=== PATIENT | male | born 1990 | race Caucasian/White ===

== ENCOUNTER 2023-08-16 16:44 | Inpatient (IN) | payer OTHER ==
[2023-08-16] VITALS (11 sets, daily range): BP systolic 107–207; BP diastolic 41–141; PULSE 98–152; RESP 17–46; TEMP 98.6–99.2; O2SAT 94–100
[~2023-08-16] VITALS: Ht 175.3 cm; Wt 97.5 kg
[2023-08-16] MEDS ORDERED: NACL 0.9% 1,000 ML IV SCH (16:50)
[2023-08-16] MEDS ORDERED: ALBUTEROL SULFATE/IPRATROPIU 3 ML SOL IH ONE ×2 (16:54→17:05)
[2023-08-16] MEDS ORDERED: ALBUTEROL 0.083% 2.5 MG/3 ML NEBU INH ONE (16:55)
[2023-08-16] MEDS ORDERED: NALOXONE 0.4 MG/ML VIAL ONE (16:58)
[2023-08-16] MEDS ORDERED: NALOXONE 0.4 MG/ML VIAL IVP ONE (17:00)
[2023-08-16] MEDS ORDERED: INTUBATION KIT MC ONE (17:04)
[2023-08-16] MEDS ORDERED: LORazepam 2 MG/ML VIAL ONE (17:15)
[2023-08-16] MEDS ORDERED: LORazepam 2 MG/ML VIAL IVP ONE (17:15)
[2023-08-16 17:27] LABS: BASOPHILS # (AUTO) 0.1 K/uL (0.00-0.22); BASOPHILS % (AUTO) 0.5 % (0.0-2.0); EOSINOPHILS # (AUTO) 0.2 K/uL (0-0.4); EOSINOPHILS % (AUTO) 1.3 % (0.0-4.0); HEMATOCRIT 49.3 % (36-52); HEMOGLOBIN 16.2 g/dL (12.0-18.0); LYMPHOCYTES # (AUTO) 7.2 K/uL (2.0-11.5); LYMPHOCYTES % (AUTO) 38.4 % (20.5-51.1); MEAN CORPUSCULAR HEMOGLOBIN 33 pg (27-31); MEAN CORPUSCULAR HGB CONC 33 g/dL (33-37); MEAN CORPUSCULAR VOLUME 101.8 fL (80-94); MONOCYTES % (AUTO) 10.7 % (1.7-9.3); NEUTROPHILS # (AUTO) 9.3 K/uL (1.8-7.7); NEUTROPHILS % (AUTO) 49.1 % (42.2-75.2); PLATELET COUNT (AUTO) 178 K/uL (140-450); RED BLOOD CELL COUNT(AUTO) 4.85 MIL/uL (4.20-6.10); RED CELL DISTRIBUTION WIDTH 15.8 % (11.6-13.7); WHITE BLOOD COUNT (AUTO) 18.8 K/uL (4.8-10.8)
[2023-08-16] MEDS ORDERED: cefTRIAXone 2,000 MG in DEXTROSE 5% 100 ML IV ONE (17:30)
[2023-08-16 17:47] LABS: ALBUMIN 4.1 g/dL (3.4-5.0); ANION GAP 34.5 (8-16); CALCIUM 10.2 mg/dL (8.5-10.1); CREATININE 1.5 mg/dL (0.6-1.3); POTASSIUM 3.4 mmol/L (3.5-5.1); TOTAL BILIRUBIN 1.2 mg/dL (0.0-1.0)
[2023-08-16] MEDS ORDERED: PROPOFOL 1000 MG/100 ML PREMIX 100 ML IV ONE ×3 (17:49→20:41)
[2023-08-16 17:50] LABS: CARBON DIOXIDE 8.9 mmol/L (21-32)
[2023-08-16 17:51] LABS: ALCOHOL, BLOOD < 3 mg/dL (<10); CREATINE KINASE, TOTAL 160 U/L (39-308); SALICYLATE < 2.8 mg/dL (2.8-20.0)
[2023-08-16 17:52] LABS: ACETAMINOPHEN < 0.5 ug/ml (10-30)
[2023-08-16] MEDS ORDERED: SUCCINYLCHOLINE CHLORIDE 200 MG/10 ML VIAL IVP ONE (18:00)
[2023-08-16] MEDS ORDERED: ETOMIDATE 20 MG/10 ML VIAL IVP ONE (18:00)
[2023-08-16] MEDS ORDERED: ROCURONIUM 50 MG/5 ML VIAL IV ONE (18:00)
[2023-08-16 18:10] LABS: BLOOD GAS BASE EXCESS -7.5 mmol/L (-2.0-2.0); BLOOD GAS HCO3 17.9 mmol/L (22-26); BLOOD GAS PCO2 36.5 mmHg (35-45); BLOOD GAS PH 7.308 (7.35-7.45); BLOOD GAS PO2 524.8 mmHg (75-100)
[2023-08-16 18:11] LABS: BLOOD GAS O2 SAT% 99.8 % (92.0-98.5)
[2023-08-16 18:18] LABS: INR 1.13 (0.8-1.2); LACTIC ACID 23.5 mmol/L (0.4-2.0); PARTIAL THROMBOPLASTIN TIME 25.3 secs (22-35.6); PROTHROMBIN TIME 11.8 secs (10.8-13.4)
[2023-08-16] MEDS ORDERED: NACL 0.9% 2,000 ML IV ONE (18:20)
[2023-08-16 18:22] LABS: APPEARANCE,URINE CLEAR (CLEAR); BILIRUBIN,URINE NEGATIVE (NEGATIVE); BLOOD, URINE 1+ (NEGATIVE); COLOR,URINE YELLOW (YELLOW); LEUKOCYTE ESTERASE ,URINE NEGATIVE (NEGATIVE); NITRITE, URINE NEGATIVE (NEGATIVE); PROTEIN,URINE 2+ (NEGATIVE); UGLUCOSE 1+ (NEGATIVE); UROBILINOGEN,URINE 0.2 EU/dL (0.2 - 1)
[2023-08-16 18:29] LABS: BACTERIA,URINE OCCASSIONAL /HPF (None Seen); MUCUS,URINE 1+ /LPF (None Seen); RBC,URINE 0-5 /HPF (0-5); SQUAMOUS EPITHELIAL CELL,UR None Seen /LPF (0-3 (FEW)); WBC,URINE 0-5 /HPF (0-5)
[2023-08-16] MEDS ORDERED: DIAZEPAM PFS 10 MG/2 ML SYR ONE (18:34)
[2023-08-16] MEDS ORDERED: levETIRAcetam 100 MG/ML VIAL IV ONE (18:35)
[2023-08-16] MEDS ORDERED: levETIRAcetam 1,000 MG in NACL 0.9% 100 ML IV ONE (18:35)
[2023-08-16] MEDS ORDERED: DIAZEPAM PFS 10 MG/2 ML SYR IVP ONE (18:35)
[2023-08-16 18:37] LABS: AMPHETAMINE, URINE NEGATIVE ng/ml (NEG <=1000); BARBITURATE, URINE NEGATIVE ng/ml (NEG <=200); BENZODIAZEPINE, URINE NEGATIVE ng/mL (NEG <=200); CANNABINOID, URINE NEGATIVE ng/mL (NEG <=50); COCAINE, URINE NEGATIVE ng/mL (NEG <=300); OPIATE, URINE NEGATIVE ng/mL (NEG <=2000); PHENCYCLIDINE SCREEN,URINE NEGATIVE ng/mL (NEG <=25)
[2023-08-16] MEDS ORDERED: MIDAZOLAM MDV 50 MG in NACL 0.9% 40 ML IV STA (18:50)
[2023-08-16] MEDS ORDERED: MIDAZOLAM MDV 50 MG in NACL 0.9% 40 ML IV PRN (19:05)
[2023-08-16] MEDS ORDERED: cefTRIAXone 2,000 MG VIAL ONE ×2 (19:09→20:59)
[2023-08-16 19:19] LABS: FLU A ANTIGEN negative (NEGATIVE); FLU B ANTIGEN NEGATIVE (NEGATIVE)
[2023-08-16] MEDS ORDERED: POTASSIUM CHLORIDE 10 MEQ TABER PO PRN (21:10)
[2023-08-16] MEDS ORDERED: ACETAMINOPHEN 325 MG TAB PO PRN (21:10)
[2023-08-16] MEDS ORDERED: guaiFENesin DM 200/20 MG-10 ML 10 ML UDC PO PRN (21:10)
[2023-08-16] MEDS ORDERED: HYDROcodone/APAP 7.5/325 MG 1 TAB PO PRN (21:10)
[2023-08-16] MEDS ORDERED: ONDANSETRON 4 MG/2 ML VIAL IM/IVP PRN (21:10)
[2023-08-16] MEDS ORDERED: DOCUSATE SODIUM 100 MG GELCAP PO PRN (21:10)
[2023-08-16] MEDS: PROPOFOL 1000 MG/100 ML PREMIX 100 ML IV PRN ×2 (21:56→23:50)
[2023-08-16] MEDS: NACL 0.9% 1,000 ML IV SCH (21:57)
[2023-08-16 22:06] LABS: CHOL/HDL RATIO 3.4 (1-4.5); FREE T4 (FREE THYROXINE) 0.89 ng/dL (0.76-1.46); MAGNESIUM 1.6 mg/dL (1.8-2.4); PHOSPHORUS 5.2 mg/dL (2.5-4.9); THYROID STIMULATING HORMONE 3.13 uIU/mL (0.34-3.74)
[2023-08-16] MEDS: MIDAZOLAM MDV 50 MG in NACL 0.9% 40 ML IV PRN (22:48)
[2023-08-17] VITALS (56 sets, daily range): BP systolic 101–153; BP diastolic 43–94; PULSE 66–109; RESP 12–39; TEMP 96–99.6; O2SAT 98–100
[2023-08-17] MEDS: PROPOFOL 1000 MG/100 ML PREMIX 100 ML IV PRN ×7 (02:37→21:52)
[2023-08-17 05:36] LABS: BASOPHILS # (AUTO) 0.1 K/uL (0.00-0.22); BASOPHILS % (AUTO) 0.7 % (0.0-2.0); EOSINOPHILS # (AUTO) 0.1 K/uL (0-0.4); HEMATOCRIT 39.8 % (36-52); HEMOGLOBIN 13.9 g/dL (12.0-18.0); LYMPHOCYTES # (AUTO) 1.3 K/uL (2.0-11.5); LYMPHOCYTES % (AUTO) 17.4 % (20.5-51.1); MEAN CORPUSCULAR HEMOGLOBIN 34 pg (27-31); MEAN CORPUSCULAR HGB CONC 35 g/dL (33-37); MEAN CORPUSCULAR VOLUME 97.4 fL (80-94); MONOCYTES % (AUTO) 12.6 % (1.7-9.3); NEUTROPHILS # (AUTO) 5.3 K/uL (1.8-7.7); NEUTROPHILS % (AUTO) 68.3 % (42.2-75.2); PLATELET COUNT (AUTO) 131 K/uL (140-450); RED BLOOD CELL COUNT(AUTO) 4.08 MIL/uL (4.20-6.10); RED CELL DISTRIBUTION WIDTH 15.5 % (11.6-13.7); WHITE BLOOD COUNT (AUTO) 7.7 K/uL (4.8-10.8)
[2023-08-17 06:33] LABS: ANION GAP 13.5 (8-16); CALCIUM 8.3 mg/dL (8.5-10.1); CARBON DIOXIDE 23.4 mmol/L (21-32); CREATININE 0.8 mg/dL (0.6-1.3)
[2023-08-17] MEDS: NACL 0.9% 1,000 ML IV SCH ×3 (06:34→22:48)
[2023-08-17 06:44] LABS: POTASSIUM 2.9 mmol/L (3.5-5.1)
[2023-08-17] MEDS ORDERED: levETIRAcetam 500 MG in NACL 0.9% 100 ML IV SCH (09:00)
[2023-08-17] MEDS ORDERED: PANTOPRAZOLE 40 MG TABEC PO SCH (09:00)
[2023-08-17 09:30] LABS: CALCIUM 8.2 mg/dL (8.5-10.1); CARBON DIOXIDE 22.1 mmol/L (21-32); CREATININE 0.7 mg/dL (0.6-1.3); POTASSIUM 3.1 mmol/L (3.5-5.1)
[2023-08-17] MEDS ORDERED: DOCUSATE 100 MG/10 ML UDC GT PRN (10:35)
[2023-08-17] MEDS ORDERED: KCL 20 MEQ IN 100 mL PREMIX 200 ML IV ONE ×2 (10:50→22:45)
[2023-08-17] MEDS: MIDAZOLAM MDV 50 MG in NACL 0.9% 40 ML IV PRN ×2 (12:09→19:36)
[2023-08-17] MEDS ORDERED: fentaNYL citrate 1 MG in NACL 0.9% 80 ML IV PRN (17:35)
[2023-08-17] MEDS: fentaNYL citrate 1 MG in NACL 0.9% 80 ML IV PRN (19:56)
[2023-08-17] MEDS: levETIRAcetam 1,000 MG in NACL 0.9% 100 ML IV SCH (21:05)
[2023-08-17 22:06] LABS: ANION GAP 14.8 (8-16); CALCIUM 7.9 mg/dL (8.5-10.1); CARBON DIOXIDE 20.1 mmol/L (21-32); CREATININE 0.6 mg/dL (0.6-1.3)
[2023-08-17 22:08] LABS: POTASSIUM 2.9 mmol/L (3.5-5.1)
[2023-08-18] VITALS (38 sets, daily range): BP systolic 108–171; BP diastolic 60–103; PULSE 60–111; RESP 16–32; TEMP 96.8–98.7; O2SAT 98–100
[2023-08-18] MEDS: PROPOFOL 1000 MG/100 ML PREMIX 100 ML IV PRN ×7 (00:50→23:30)
[2023-08-18] MEDS: MIDAZOLAM MDV 50 MG in NACL 0.9% 40 ML IV PRN (03:17)
[2023-08-18 05:42] LABS: BASOPHILS # (AUTO) 0.1 K/uL (0.00-0.22); BASOPHILS % (AUTO) 0.9 % (0.0-2.0); EOSINOPHILS # (AUTO) 0.2 K/uL (0-0.4); EOSINOPHILS % (AUTO) 2.6 % (0.0-4.0); HEMATOCRIT 37.8 % (36-52); LYMPHOCYTES # (AUTO) 2.4 K/uL (2.0-11.5); LYMPHOCYTES % (AUTO) 32.8 % (20.5-51.1); MEAN CORPUSCULAR HEMOGLOBIN 34 pg (27-31); MEAN CORPUSCULAR HGB CONC 34 g/dL (33-37); MEAN CORPUSCULAR VOLUME 99.5 fL (80-94); MONOCYTES # (AUTO) 1.1 K/uL (0.8-1.0); MONOCYTES % (AUTO) 15.4 % (1.7-9.3); NEUTROPHILS # (AUTO) 3.6 K/uL (1.8-7.7); NEUTROPHILS % (AUTO) 48.3 % (42.2-75.2); PLATELET COUNT (AUTO) 94 K/uL (140-450); RED CELL DISTRIBUTION WIDTH 15.8 % (11.6-13.7); WHITE BLOOD COUNT (AUTO) 7.4 K/uL (4.8-10.8)
[2023-08-18 05:55] LABS: ANION GAP 11.2 (8-16); CALCIUM 8.3 mg/dL (8.5-10.1); CARBON DIOXIDE 24.5 mmol/L (21-32); CREATININE 0.7 mg/dL (0.6-1.3); POTASSIUM 3.7 mmol/L (3.5-5.1)
[2023-08-18 06:08] LABS: T4 (THYROXINE) 6.7 ug/dL (4.5-12.0)
[2023-08-18] MEDS: NACL 0.9% 1,000 ML IV SCH ×2 (06:41→16:43)
[2023-08-18] MEDS ORDERED: MULTIVITAMIN 1 TAB PO SCH (09:00)
[2023-08-18] MEDS: levETIRAcetam 1,000 MG in NACL 0.9% 100 ML IV SCH ×2 (09:25→20:12)
[2023-08-18] MEDS: PANTOPRAZOLE 40 MG INJ VIAL IVP SCH (09:25)
[2023-08-18] MEDS ORDERED: FOAM DRESSING TP PRN (11:35)
[2023-08-18] MEDS ORDERED: MIDAZOLAM MDV 50 MG in NACL 0.9% 40 ML IV PRN (12:15)
[2023-08-18] MEDS: GAUZE TP SCH (13:00)
[2023-08-18] MEDS: FOAM DRESSING TP SCH (13:00)
[2023-08-18] MEDS: HYDRAGUARD CREAM TP SCH (13:00)
[2023-08-18] MEDS ORDERED: hydrALAZINE 20 MG/ML VIAL ONE (20:50)
[2023-08-18] MEDS: diazePAM 5 MG TAB PO SCH (21:06)
[2023-08-18] MEDS: QUEtiapine FUMARATE 25 MG TAB PO SCH (21:06)
[2023-08-18] MEDS: hydrALAZINE 20 MG/ML VIAL IVP PRN (21:08)
[2023-08-18 21:28] LABS: HEMOGLOBIN A1C 5.9 % (4.8-5.6)
[2023-08-19] VITALS (38 sets, daily range): BP systolic 92–159; BP diastolic 50–104; PULSE 66–119; RESP 12–39; TEMP 98.4–100.4; O2SAT 97–100
[2023-08-19] MEDS: NACL 0.9% 1,000 ML IV SCH ×4 (00:26→16:43)
[2023-08-19] MEDS: HYDRAGUARD CREAM TP SCH ×2 (00:52→17:45)
[2023-08-19] MEDS: PROPOFOL 1000 MG/100 ML PREMIX 100 ML IV PRN ×8 (03:08→23:18)
[2023-08-19] MEDS: fentaNYL citrate 1 MG in NACL 0.9% 80 ML IV PRN (03:10)
[2023-08-19] MEDS: MIDAZOLAM MDV 100 MG in NACL 0.9% 80 ML IV PRN ×2 (03:14→16:23)
[2023-08-19] MEDS: diazePAM 5 MG TAB PO SCH ×3 (05:15→20:29)
[2023-08-19] MEDS: QUEtiapine FUMARATE 25 MG TAB PO SCH ×3 (05:15→20:29)
[2023-08-19 05:24] LABS: BASOPHILS % (AUTO) 0.7 % (0.0-2.0); EOSINOPHILS # (AUTO) 0.2 K/uL (0-0.4); EOSINOPHILS % (AUTO) 2.7 % (0.0-4.0); HEMATOCRIT 39.8 % (36-52); HEMOGLOBIN 13.7 g/dL (12.0-18.0); LYMPHOCYTES % (AUTO) 28.9 % (20.5-51.1); MEAN CORPUSCULAR HEMOGLOBIN 34 pg (27-31); MEAN CORPUSCULAR HGB CONC 34 g/dL (33-37); MONOCYTES # (AUTO) 0.9 K/uL (0.8-1.0); MONOCYTES % (AUTO) 12.2 % (1.7-9.3); NEUTROPHILS # (AUTO) 3.9 K/uL (1.8-7.7); NEUTROPHILS % (AUTO) 55.5 % (42.2-75.2); PLATELET COUNT (AUTO) 121 K/uL (140-450); RED BLOOD CELL COUNT(AUTO) 4.02 MIL/uL (4.20-6.10); RED CELL DISTRIBUTION WIDTH 16.4 % (11.6-13.7)
[2023-08-19 05:44] LABS: ANION GAP 11.4 (8-16); CALCIUM 8.6 mg/dL (8.5-10.1); CARBON DIOXIDE 25.6 mmol/L (21-32); CREATININE 0.7 mg/dL (0.6-1.3)
[2023-08-19] MEDS: hydrALAZINE 20 MG/ML VIAL IVP PRN ×3 (07:57→10:04)
[2023-08-19] MEDS: PANTOPRAZOLE 40 MG INJ VIAL IVP SCH (08:28)
[2023-08-19] MEDS ORDERED: bisacodyL 10 MG SUPP RC PRN (08:35)
[2023-08-19] MEDS ORDERED: LORazepam 2 MG/ML VIAL IVP PRN ×2 (08:35→13:30)
[2023-08-19] MEDS: levETIRAcetam 1,000 MG in NACL 0.9% 100 ML IV SCH ×2 (08:57→20:16)
[2023-08-19] MEDS: KCL 20 MEQ IN 100 mL PREMIX 200 ML IV PRN ×2 (09:59→12:25)
[2023-08-19] MEDS: MULTIVITAMIN/MINERALS 15 ML UDBTL NG SCH (10:08)
[2023-08-19] MEDS ORDERED: MAG SULF 2000 MG/WATER PREMIX 50 ML IV SCH (11:37)
[2023-08-19] MEDS: FOAM DRESSING TP SCH (13:08)
[2023-08-19] MEDS: GAUZE TP SCH (13:08)
[2023-08-19] MEDS ORDERED: NACL 0.9% IV PRN (13:30)
[2023-08-19] MEDS ORDERED: DEXMEDETOMIDINE HCL IV PRN (13:30)
[2023-08-19] MEDS: DEXMEDETOMIDINE HCL 400 MCG in NACL 0.9% 96 ML IV PRN (20:05)
[2023-08-19 20:38] LABS: ANION GAP 9.7 (8-16); CALCIUM 8.1 mg/dL (8.5-10.1); CARBON DIOXIDE 22.9 mmol/L (21-32); CREATININE 0.5 mg/dL (0.6-1.3); POTASSIUM 3.6 mmol/L (3.5-5.1)
[2023-08-20] VITALS (38 sets, daily range): BP systolic 103–154; BP diastolic 62–119; PULSE 64–104; RESP 12–25; TEMP 96–98.6; O2SAT 95–100
[2023-08-20] MEDS: HYDRAGUARD CREAM TP SCH ×2 (01:00→13:14)
[2023-08-20] MEDS: PROPOFOL 1000 MG/100 ML PREMIX 100 ML IV PRN ×3 (02:40→21:12)
[2023-08-20] MEDS: NACL 0.9% 1,000 ML IV SCH ×3 (02:41→20:48)
[2023-08-20] MEDS: diazePAM 5 MG TAB PO SCH ×2 (04:41→13:08)
[2023-08-20] MEDS: QUEtiapine FUMARATE 25 MG TAB PO SCH ×3 (04:41→20:47)
[2023-08-20 05:07] LABS: BASOPHILS % (AUTO) 0.7 % (0.0-2.0); EOSINOPHILS # (AUTO) 0.1 K/uL (0-0.4); EOSINOPHILS % (AUTO) 2.7 % (0.0-4.0); HEMOGLOBIN 12.6 g/dL (12.0-18.0); LYMPHOCYTES # (AUTO) 1.2 K/uL (2.0-11.5); LYMPHOCYTES % (AUTO) 25.5 % (20.5-51.1); MEAN CORPUSCULAR HEMOGLOBIN 34 pg (27-31); MEAN CORPUSCULAR HGB CONC 34 g/dL (33-37); MEAN CORPUSCULAR VOLUME 99.7 fL (80-94); MONOCYTES # (AUTO) 0.8 K/uL (0.8-1.0); MONOCYTES % (AUTO) 16.6 % (1.7-9.3); NEUTROPHILS # (AUTO) 2.5 K/uL (1.8-7.7); NEUTROPHILS % (AUTO) 54.5 % (42.2-75.2); PLATELET COUNT (AUTO) 144 K/uL (140-450); RED BLOOD CELL COUNT(AUTO) 3.71 MIL/uL (4.20-6.10); RED CELL DISTRIBUTION WIDTH 16.4 % (11.6-13.7); WHITE BLOOD COUNT (AUTO) 4.7 K/uL (4.8-10.8)
[2023-08-20 05:32] LABS: ANION GAP 10.5 (8-16); CALCIUM 8.5 mg/dL (8.5-10.1); CARBON DIOXIDE 24.8 mmol/L (21-32); CREATININE 0.6 mg/dL (0.6-1.3); POTASSIUM 3.3 mmol/L (3.5-5.1)
[2023-08-20] MEDS: MULTIVITAMIN/MINERALS 15 ML UDBTL NG SCH (08:25)
[2023-08-20] MEDS: PANTOPRAZOLE 40 MG INJ VIAL IVP SCH (08:25)
[2023-08-20] MEDS ORDERED: MULTIVITAMIN 1 TAB NG SCH (09:00)
[2023-08-20] MEDS: levETIRAcetam 1,000 MG in NACL 0.9% 100 ML IV SCH ×2 (09:02→20:47)
[2023-08-20] MEDS: DEXMEDETOMIDINE HCL 400 MCG in NACL 0.9% 96 ML IV PRN (10:03)
[2023-08-20] MEDS: KCL 20 MEQ IN 100 mL PREMIX 200 ML IV PRN (11:44)
[2023-08-20] MEDS: FOAM DRESSING TP SCH (13:13)
[2023-08-20] MEDS: GAUZE TP SCH (13:15)
[2023-08-20] MEDS: chlordiazePOXIDE 25 MG CAP PO SCH (17:29)
[2023-08-20] MEDS ORDERED: DEXMEDETOMIDINE HCL 100 MCG/ML 2 ML VIAL IV ONE (18:04)
[2023-08-21] VITALS (31 sets, daily range): BP systolic 118–176; BP diastolic 70–115; PULSE 63–103; RESP 12–24; TEMP 97.1–99.9; O2SAT 95–100
[2023-08-21] MEDS: HYDRAGUARD CREAM TP SCH ×2 (00:56→13:28)
[2023-08-21] MEDS: DEXMEDETOMIDINE HCL 400 MCG in NACL 0.9% 96 ML IV PRN (01:49)
[2023-08-21] MEDS: QUEtiapine FUMARATE 25 MG TAB PO SCH ×3 (05:12→21:18)
[2023-08-21] MEDS: NACL 0.9% 1,000 ML IV SCH (05:33)
[2023-08-21 06:37] LABS: BASOPHILS % (AUTO) 0.7 % (0.0-2.0); EOSINOPHILS # (AUTO) 0.2 K/uL (0-0.4); HEMATOCRIT 37.9 % (36-52); LYMPHOCYTES # (AUTO) 1.4 K/uL (2.0-11.5); LYMPHOCYTES % (AUTO) 25.5 % (20.5-51.1); MEAN CORPUSCULAR HEMOGLOBIN 34 pg (27-31); MEAN CORPUSCULAR HGB CONC 34 g/dL (33-37); MEAN CORPUSCULAR VOLUME 99.1 fL (80-94); MONOCYTES # (AUTO) 0.9 K/uL (0.8-1.0); MONOCYTES % (AUTO) 16.7 % (1.7-9.3); NEUTROPHILS # (AUTO) 2.9 K/uL (1.8-7.7); NEUTROPHILS % (AUTO) 54.1 % (42.2-75.2); PLATELET COUNT (AUTO) 186 K/uL (140-450); RED BLOOD CELL COUNT(AUTO) 3.83 MIL/uL (4.20-6.10); RED CELL DISTRIBUTION WIDTH 16.2 % (11.6-13.7); WHITE BLOOD COUNT (AUTO) 5.4 K/uL (4.8-10.8)
[2023-08-21 07:01] LABS: ANION GAP 10.6 (8-16); CALCIUM 8.8 mg/dL (8.5-10.1); CARBON DIOXIDE 28.7 mmol/L (21-32); CREATININE 0.5 mg/dL (0.6-1.3); POTASSIUM 3.3 mmol/L (3.5-5.1)
[2023-08-21] MEDS: KCL 20 MEQ IN 100 mL PREMIX 200 ML IV PRN (07:57)
[2023-08-21] MEDS: chlordiazePOXIDE 25 MG CAP PO SCH ×3 (09:04→17:00)
[2023-08-21] MEDS: levETIRAcetam 1,000 MG in NACL 0.9% 100 ML IV SCH ×2 (09:04→21:04)
[2023-08-21] MEDS: PANTOPRAZOLE 40 MG INJ VIAL IVP SCH (09:05)
[2023-08-21] MEDS: MULTIVITAMIN/MINERALS 15 ML UDBTL NG SCH (09:53)
[2023-08-21 11:26] LABS: BLOOD GAS PCO2 35.5 mmHg (35-45); BLOOD GAS PH 7.467 (7.35-7.45)
[2023-08-21 11:27] LABS: BLOOD GAS BASE EXCESS 1.7 mmol/L (-2.0-2.0); BLOOD GAS HCO3 25.1 mmol/L (22-26); BLOOD GAS O2 SAT% 96.3 % (92.0-98.5)
[2023-08-21] MEDS: GAUZE TP SCH (13:28)
[2023-08-21] MEDS: FOAM DRESSING TP SCH (13:28)
[2023-08-21] MEDS: DEXT 5% /NACL 0.9% 1,000 ML IV SCH (13:37)
[2023-08-21] MEDS: hydrALAZINE 20 MG/ML VIAL IVP PRN (15:19)
[2023-08-21] MEDS ORDERED: MORPHINE SULFATE 2 MG/ML SYR IVP PRN (15:30)
[2023-08-22] VITALS (21 sets, daily range): BP systolic 74–159; BP diastolic 50–91; PULSE 84–109; RESP 12–26; TEMP 97.1–99.7; O2SAT 93–99
[2023-08-22] MEDS: ZOLPIDEM 5 MG TAB PO PRN (00:11)
[2023-08-22] MEDS: HYDRAGUARD CREAM TP SCH ×2 (00:19→13:23)
[2023-08-22] MEDS: QUEtiapine FUMARATE 25 MG TAB PO SCH ×3 (04:14→20:36)
[2023-08-22 04:44] LABS: HEMATOCRIT 39.7 % (36-52); HEMOGLOBIN 13.8 g/dL (12.0-18.0); MEAN CORPUSCULAR HEMOGLOBIN 34 pg (27-31); MEAN CORPUSCULAR HGB CONC 35 g/dL (33-37); MEAN CORPUSCULAR VOLUME 97.6 fL (80-94); PLATELET COUNT (AUTO) 273 K/uL (140-450); RED BLOOD CELL COUNT(AUTO) 4.07 MIL/uL (4.20-6.10); RED CELL DISTRIBUTION WIDTH 15.8 % (11.6-13.7)
[2023-08-22 04:55] LABS: ANION GAP 9.5 (8-16); CALCIUM 9.3 mg/dL (8.5-10.1); CARBON DIOXIDE 30.3 mmol/L (21-32); CREATININE 0.6 mg/dL (0.6-1.3)
[2023-08-22 05:07] LABS: POTASSIUM 2.8 mmol/L (3.5-5.1)
[2023-08-22] MEDS: KCL 20 MEQ IN 100 mL PREMIX 200 ML IV PRN (05:20)
[2023-08-22 05:40] LABS: BASOPHILS % (MANUAL) 0 % (0-2); EOSINOPHILS % (MANUAL) 1 % (0-4); LYMPHOCYTES % (MANUAL) 35 % (20-46); MONOCYTES % (MANUAL) 19 % (5-12); OVALOCYTES 1+; PLATELET ESTIMATE ADEQUATE; POIKILOCYTOSIS 1+; SMUDGE CELLS FEW; STOMATOCYTES 1+
[2023-08-22] MEDS: PANTOPRAZOLE 40 MG INJ VIAL IVP SCH (08:54)
[2023-08-22] MEDS: chlordiazePOXIDE 25 MG CAP PO SCH ×3 (08:54→17:19)
[2023-08-22] MEDS: MULTIVITAMIN/MINERALS 15 ML UDBTL NG SCH (09:00)
[2023-08-22] MEDS: levETIRAcetam 1,000 MG in NACL 0.9% 100 ML IV SCH ×2 (09:30→20:36)
[2023-08-22] MEDS: GAUZE TP SCH (13:24)
[2023-08-22] MEDS: FOAM DRESSING TP SCH (13:24)
[2023-08-22] MEDS: DEXT 5% /NACL 0.9% 1,000 ML IV SCH (22:40)
[2023-08-23] VITALS (7 sets, daily range): BP systolic 113–123; BP diastolic 57–73; PULSE 72–92; RESP 17–20; TEMP 97.4–99.7; O2SAT 95–100
[2023-08-23] MEDS: HYDRAGUARD CREAM TP SCH (00:13)
[2023-08-23] MEDS: ZOLPIDEM 5 MG TAB PO PRN (00:13)
[2023-08-23] MEDS: DEXT 5% /NACL 0.9% 1,000 ML IV SCH (04:40)
[2023-08-23] MEDS: QUEtiapine FUMARATE 25 MG TAB PO SCH ×2 (04:45→12:47)
[2023-08-23 07:00] LABS: BASOPHILS # (AUTO) 0.1 K/uL (0.00-0.22); BASOPHILS % (AUTO) 1.5 % (0.0-2.0); EOSINOPHILS # (AUTO) 0.2 K/uL (0-0.4); EOSINOPHILS % (AUTO) 2.6 % (0.0-4.0); HEMATOCRIT 39.1 % (36-52); HEMOGLOBIN 13.5 g/dL (12.0-18.0); LYMPHOCYTES # (AUTO) 1.8 K/uL (2.0-11.5); LYMPHOCYTES % (AUTO) 29.9 % (20.5-51.1); MEAN CORPUSCULAR HEMOGLOBIN 34 pg (27-31); MEAN CORPUSCULAR HGB CONC 35 g/dL (33-37); MEAN CORPUSCULAR VOLUME 97.8 fL (80-94); MONOCYTES # (AUTO) 1.1 K/uL (0.8-1.0); MONOCYTES % (AUTO) 18.9 % (1.7-9.3); NEUTROPHILS # (AUTO) 2.8 K/uL (1.8-7.7); NEUTROPHILS % (AUTO) 47.1 % (42.2-75.2); PLATELET COUNT (AUTO) 330 K/uL (140-450); RED CELL DISTRIBUTION WIDTH 15.8 % (11.6-13.7); WHITE BLOOD COUNT (AUTO) 5.9 K/uL (4.8-10.8)
[2023-08-23 07:03] LABS: ANION GAP 12.3 (8-16); CARBON DIOXIDE 27.8 mmol/L (21-32); CREATININE 0.6 mg/dL (0.6-1.3); POTASSIUM 3.1 mmol/L (3.5-5.1)
[2023-08-23] MEDS: PANTOPRAZOLE 40 MG INJ VIAL IVP SCH (09:00)
[2023-08-23] MEDS ORDERED: levETIRAcetam 500 MG TAB PO SCH (09:00)
[2023-08-23] MEDS: MULTIVITAMIN/MINERALS 15 ML UDBTL NG SCH (09:27)
[2023-08-23] MEDS ORDERED: QUET25TA PO (12:16)
[2023-08-23] MEDS ORDERED: LEVE1000 PO (12:16)
[2023-08-23] MEDS: FOAM DRESSING TP SCH (13:00)
[2023-08-23] MEDS: GAUZE TP SCH (13:19)
[2023-08-28] MEDS ORDERED: LEVE1000 PO (23:02)
== END 2023-08-23 18:10 | disposition home or self-care (01) | DRG 130 ==
LOC: MED 16:44 → MIC 19:30 → MTU 08-22 18:50
PROVIDERS: ADMIT Family Medicine; ATTEND Family Medicine
PROC: 5A1955Z Respiratory Ventilation, Greater than 96 Consecutive Hours (ICD-10-PCS; principal; 2023-08-16)
PROC: 0BH17EZ Insertion of Endotracheal Airway into Trachea, Via Natural or Artificial Opening (ICD-10-PCS; 2023-08-16)
PROC: 4A00X4Z Measurement of Central Nervous Electrical Activity, External Approach (ICD-10-PCS; 2023-08-17)
DX: J96.01 Acute respiratory failure with hypoxia (principal); N17.0 Acute kidney failure with tubular necrosis; J69.0 Pneumonitis due to inhalation of food and vomit; G93.40 Encephalopathy, unspecified; G40.901 Epilepsy, unspecified, not intractable, with status epilepticus; D69.6 Thrombocytopenia, unspecified; E87.1 Hypo-osmolality and hyponatremia; E87.20 Acidosis, unspecified; F10.139 Alcohol abuse with withdrawal, unspecified; Y90.9 Presence of alcohol in blood, level not specified; E83.42 Hypomagnesemia; E87.6 Hypokalemia; E78.5 Hyperlipidemia, unspecified; Z20.822 Contact with and (suspected) exposure to COVID-19
CPT/HCPCS: 31500; 36415; 36600; 70450; 71045; 80048; 80053; 80305; 81001; 82150; 82550; 82803; 83036; 83605; 83690; 83735; 83880; 84100; 84436; 84439; 84443; 84479; 84484; 85025; 85610; 85730; 87040; 87081; 87086; 92526; 93005; 94003; 94640; 95816; 96374; 99291; C9113; G0480; G0482; J0360; J0696; J1953; J2060; J2250; J2270; J2310; J2704; J3010; J3360; J3475; J3480; J3490; J7060